=== PATIENT | male | born 1950 | race Caucasian/White ===

== ENCOUNTER 2018-02-10 20:10 | Emergency (ER) | payer SELFPAY ==
[2018-02-10] MEDS ORDERED: EPINEPHrine 1MG/10ML SYRINGE 1.5IN (20:11)
[2018-02-10] MEDS ORDERED: ATROPINE SULF 1MG/10ML SYRINGE (J0461) (20:11)
[2018-02-10] MEDS ORDERED: SODIUM BICARBONATE 8.4% INJ 50 ML SYRINGE (20:11)
[2018-02-10] MEDS: EPINEPHrine 1MG/10ML SYRINGE 1.5IN IV ×4 (20:13→21:06)
[2018-02-10] MEDS: ATROPINE SULF 1MG/10ML SYRINGE (J0461) IV (20:25)
[2018-02-10] MEDS: SODIUM BICARBONATE 8.4% INJ 50 ML SYRINGE IV (20:30)
[2018-02-10] MEDS ORDERED: NOREPINEPHRINE 4 MG/4 ML AMP As Ordered (20:42)
[2018-02-10 20:56] LABS: HEMATOCRIT 33.2 % (42.0-52.0); HEMOGLOBIN 10.3 g/dl (13.5-17.5); MEAN CORPUSCULAR HEMOGLOBIN 33.9 pg (27.0-33.0); MEAN CORPUSCULAR VOLUME 109.2 fl (80.0-96.0); PLATELET COUNT, AUTOMATED 208 10^3/uL (150-450); RED BLOOD COUNT 3.04 10^6/uL (4.30-6.10); RED CELL DISTRIBUTION WIDTH 12.3 % (11.5-14.5)
[2018-02-10] MEDS: NOREPINEPHRINE BITARTRATE 8 MG in D5W 492 ML IV (20:58)
[2018-02-10 21:00] LABS: ADD MANUAL DIFFER YES; DIFF SLIDE NUMBER 339; POS COUNT POS FLAG; POSITIVE MORPH POS FLAG
[2018-02-10 21:08] LABS: INR 2.24; PROTHROMBIN TIME 25.6 SECONDS (12.4-14.5)
[2018-02-10 21:10] LABS: PARTIAL THROMBOPLASTIN TIME 109.1 SECONDS (26.8-37.9)
[2018-02-10 21:16] LABS: ATYPICAL LYMPH 1 % (0-5); BANDS 7 % (< 11); EOSINOPHILS 4 % (0-5); LYMPHOCYTES 48 % (16-52); METAMYELOCYTES 8 % (0-0); MONOCYTES 4 % (0-8); MYELOCYTES 2 % (0-0); NEUTROPHILS 25 % (35-75); PROMYELOCYTES 1 % (0-0)
[2018-02-10 21:17] LABS: PLATELET ESTIMATE NORMAL (NORMAL)
[2018-02-10 21:19] LABS: TOXIC VACUOLATION 1+
[2018-02-10 21:25] LABS: BLOOD UREA NITROGEN 18 MG/DL (7-18); CALCIUM LEVEL 7.1 MG/DL (8.8-10.2); CARBON DIOXIDE LEVEL 16 MEQ/L (21-32); CHLORIDE LEVEL 106 MEQ/L (98-107); CREATININE FOR GFR 1.29 MG/DL (0.70-1.30); GLUCOSE, FASTING 246 MG/DL (70-100); POTASSIUM SERUM 3.9 MEQ/L (3.5-5.1); TROPONIN I 0.35 NG/ML (< 0.10)
[2018-02-10 21:35] LABS: CK-MB VALUE MASS 21.2 NG/ML (<3.6); CPK CREATINE PHOSPHOKINASE 950 U/L (39-308); MB/CK RELATIVE INDEX 2.23 (< OR =4)
[2018-02-10 21:36] LABS: ANION GAP 19 MEQ/L (8-16); SODIUM LEVEL 141 MEQ/L (136-145)
== END 2018-02-11 02:52 | disposition expired ==
LOC: M ED 02-11 02:52
DX: I46.9 Cardiac arrest, cause unspecified (principal)
CPT/HCPCS: J0461

== ENCOUNTER → 2018-02-11 | Outpatient (REF) | LOC: M LAB 13:01 | DX: Z02.89 Encounter for other administrative examinations (principal) ==